=== PATIENT | female | born 1950 | race Caucasian/White ===

== ENCOUNTER → 2017-12-25 09:18 | Outpatient (CLI) | payer MEDICARE, SELFPAY | PROVIDERS: Family Provider Family Medicine; PCP Family Medicine; Visit Provider Family Medicine | DX: I45.10 Unspecified right bundle-branch block (principal); R06.02 Shortness of breath; R00.2 Palpitations | CPT/HCPCS: 93225; 93226 ==

== ENCOUNTER 2020-09-27 07:25 | Day surgery (SDC) | payer MEDICARE, SELFPAY ==
[2020-08-23 13:42] VITALS: BMI 26.8
[2020-09-08 13:49] VITALS: BMI 26.8
--- NOTE | 2020-09-27 07:33 | PCM.HP.BLA ---
History and Physical Date of Admission: 09/27/20 Intake Visit Reasons: CSCOPE, CONSTIPATION Chief Complaint: change in bowel habits Body Piercer Required: No Is patient in pain?: No Allergies celery Allergy (Mild, Verified 08/23/20 13:43) unknown diazepam [From Valium] Allergy (Mild, Verified 08/23/20 13:43) loopy grapefruit Allergy (Mild, Verified 08/23/20 13:43) unknown oxycodone Allergy (Mild, Verified 08/23/20 13:43) loopy pineapple Allergy (Mild, Verified 08/23/20 13:43) unknown ragweed pollen Allergy (Mild, Verified 08/23/20 13:43) unknown diphenhydramine HCl [From Benadryl] Allergy (Verified 08/23/20 13:43) Rash Medications simvastatin 20 mg PO QHS 02/16/14 [History Confirmed 08/23/20] calcium carbonate-vitamin D3 600 mg (1,500 mg)-400 unit capsule cap PO 07/30/17 [History Confirmed 08/23/20] cholecalciferol (vitamin D3) 25 mcg (1,000 unit) capsule 2,000 unit PO DAILY cap 07/30/17 [History Confirmed 08/23/20] lisinopril 40 mg tablet 40 mg PO QDAY 07/30/17 [History Confirmed 08/23/20] lutein 10 mg tablet 10 mg PO QDAY 07/30/17 [History Confirmed 08/23/20] multivitamin 1 tab PO QDAY 07/30/17 [History Confirmed 08/23/20] antiarthritic combination no.2 900 mg tablet mg PO tab 07/31/18 [History Confirmed 08/23/20] fluticasone propionate 50 mcg/actuation nasal spray,suspension 1 spray INTRANASAL BID 10/13/19 [History Confirmed 08/23/20] amlodipine 5 mg tablet 10 mg PO DAILY tab 08/23/20 [History Confirmed 08/23/20] hydrochlorothiazide 25 mg tablet 12.5 mg PO DAILY tab 08/23/20 [History Confirmed 08/23/20] Is last menstrual period known: No Post menopausal: Yes Patient : No PFSH Medical History (Updated 08/23/20 @ 13:[address] Eliu Tanner MD) Anxiety Hyperlipidemia Hypertension Lactose intolerance Sciatica White coat syndrome with hypertension Surgical History H/O colonoscopy S/P partial hysterectomy Family History (Updated 08/23/20 @ 13:28 by Hannah Rubio) Mother Lymphoma Heart disease Father Prostate cancer Asthma Hypertension Heart disease Kidney disease Social History (Updated 10/13/19 @ 09:21 by Kassandra Simmons NP, CLINCHING MACHINE OPERATOR-C) Smoking Status: Never smoker alcohol intake: never substance use type: does not use caffeine: Yes what type of physical activity do you participate in: walking, yoga and aerobics frequency: 5-6 times per week seatbelt use: always do you feel safe at home: Yes additional social history: - [employer]Ret[employer] 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 She is also had a change of bowel habits with inconsistency and narrowed stool. She has not noticed any bright red blood per rectum or melena. She is referred by her primary care physician Dr. Simon Tanner, III and a written copy my surgical consult recommendations will return to him. Her most recent colonoscopy was July 2018. A ascending colon polyp and a sigmoid polyp identified at that time. Pathology consistent with a tubular adenoma. She has no family history of colon cancer. She otherwise maintains excellent health. She exercises routinely. She has had no history of DVT. She has had amlodipine increased and with this there seems to be increased swelling of her left ankle and foot. HPI HPI HPI: SOHAIL POSEY, is a 70 F who presents to the office today for ROS General General: No weight change, appetite, fatigue, colon cancer, breast cancer or weakness HEENT HEENT: No difficulty swallowing, eye injury, eye surgery, swollen glands or hoarseness Endo Endocrine: No thyroid disease, diabetes mellitus, thyroid cancer, Hair loss, heat intolerance or cold intolerance Musc Musculoskeletal: Yes back problems; No arthritis, rheumatoid arthritis, gout or joint pain Cardio Cardiovascular: Yes high blood pressure; No murmur, pacemaker, heart disease, atrial fibrillation, heart attack, heart stent, palpitations, shortness of breat with exertion or chest pain Psych Psychiatric: Yes anxiety; No depression or hearing voices Resp Respiratory: No shortness of breath, No sleep apnea, No cough, No COPD, No asthma, No emphysema and No wheezing Gastro Gastrointestinal: Yes abdominal pain, No nausea or vomiting, No diarrhea, Yes constipation, No blood in stool, No acid reflux, No hemorrhoids, No ulcers, No gallbladder problem and No black,tarry stools Johnathan Hematologic: No blood thinners, No blood disorders, No bleeding, No anemia and No blood clots Neuro Neurologic: No weakness Exam Const General: cooperative, healthy appearing, comfortable and no acute distress Nutritional Appearance: average body habitus [facility] Head: normal to inspection Eyes General: appearance normal, both eyes and all related structures Neck Neck: normal visual inspection Resp Effort & Inspection: normal respiratory effort Auscultation: clear to auscultation bilaterally Cardio Rate: regular rate Rhythm: regular rhythm Heart Sounds: no murmurs GI Palpation: soft Auscultation: normal bowel sounds Other: Very slight tenderness to deep palpation left lower quadrant. No mass. No rebound. No guarding. I cannot detect a distinct hernia Musc Cervical Spine: normal cervical lordosis Neuro Cognition: normal cognition Extrem Other: Left ankle edema 1-2+ in deference to an otherwise normal right ankle Psych Appearance: grossly normal Assessment and Plan Assessment and Plan (1) Personal history of colonic polyps: Status: Acute Comment: I recommended the patient a colonoscopy with possible biopsy or polypectomy as indicated. She is aware of the technique, benefit, risk, alternatives. We will schedule procedure at her discretion. If that is not definitive in determining the source of her low abdominal pain then I would recommend a fully contrasted CT scan of the abdomen and pelvis. She has had an opportunity to ask and have questions answered and is agreeable with this plan. She will additionally contact Dr. Simon Tanner III regarding her progressive left ankle swelling possibly related to her amlodipine. I appreciate the opportunity of assisting with her surgical care Copy MANJU Soares M.D., F.A.C.S. (2) Change in bowel habit: Status: Acute Coding Level of Care Code 45178 Diagnoses Personal history of colonic polyps Z86.010 Change in bowel habit R19.4 I have re-examined the patient. There are no clinical changes since date of exam.
[2020-09-27 07:47] VITALS: BP 183/72; PULSE 55; RESP 14; TEMP 35.9; O2SAT 99; BMI 25.9
[2020-09-27] MEDS: Lactated Ringers 1,000 ML 100 ML IV (08:03)
--- NOTE | 2020-09-27 08:30 | COLBX_PTH ---
PATIENT: SOHAIL POSEY LOC: EN U#:[id number] AGE/SX: 70/F ROOM: RE09/27/[address]: Dr. Eliu Tanner MD : 1950 BED: DIS: 09/27/2020 SPEC #: [id number] RECD: 09/27/20 10:24 STATUS: JOHN REJessica #: [id number] JANIE: 09/27/20 08:[address]: Eliu Tanner DEPT: SURGICAL PATHOLOGY RECD BY: Mera Montgomery ENTERED: 09/27/20 13:17 SP TYPE: COLON BX OTHR DR: Paulie De Leon MD Tissues: COLON BIOPSY Procedures: Surgery Specimen Level IV HEADER OPERATION: Colonoscopy (MAC) PRE-OP DIAGNOSIS: History of colonic polyps TISSUE SUBMITTED: Biopsy of hepatic flexure polyp MICROSCOPIC DIAGNOSIS Hepatic flexure polyp, biopsy: Tubular adenoma. ELSA:richie 09/28/2020 MICROSCOPIC DESCRIPTION Slides are reviewed. GROSS DESCRIPTION Received in fixative is one container labeled with the patient's name and designated biopsy hepatic flexure polyp. The specimen consists of two irregular fragments of light mao soft tissue that in aggregate measure 0.6 x 0.2 x 0.1 cm. The specimen is totally submitted in one cassette. / SJ:rg 09/27/20 TC:1 CPT: 14798
[2020-09-27 09:15] VITALS: BP 171/97; BP 183/72; PULSE 66; RESP 16; TEMP 36.2; O2SAT 100
--- NOTE | 2020-09-27 09:16 | OP.CCLET_ITS ---
09/27/2020 Simon Tanner [address] [place] [address] Re : Colonoscopy procedure for Liudmila Méndezfrancheskajuan antonio Dear Dr. Tanner This procedure was performed on Sunday, September 27, 2020. My impressions and recommendations are as follows: Impressions : - Hemorrhoids found on perianal exam. - One 5 mm polyp at the hepatic flexure, removed with a cold biopsy forceps. Resected and retrieved. - Diverticulosis in the sigmoid colon and in the descending colon. - Redundant colon. No inflammatory mucosal identified. The patient states currently here left lower quadrant pain is improved. If symptoms were to recur I would consider a fully contrasted abdominal pelvic CT scan. Recommendations : - Discharge patient to home. - Resume previous diet. - Continue present medications. - Repeat colonoscopy in 5 years for surveillance based on pathology results. - Telephone my office for pathology results in 1 week. My findings are described in the full procedure note, which is enclosed. If I can be of further assistance, please feel free to contact me at Doctor phone number(s): Work: . Sincerely, Eliu Tanner MD 09/27/2020 9:15:50 AM This report has been signed electronically.
--- NOTE | 2020-09-27 09:16 | OP.COLON_ITS ---
Patient Name: Liudmila Luz Procedure Date: 09/27/2020 8:44 AM Date of : 1950 Age: 70 Procedure: Colonoscopy Indications: Abdominal pain in the left lower quadrant Providers: Eliu Tanner MD Medicines: See the Anesthesia note for documentation of the administered medications Patient Profile: Last Colonoscopy: July 2018. Complications: No immediate complications. Procedure: Pre-Anesthesia Assessment: - Prior to the procedure, a History and Physical was performed, and patient medications and allergies were reviewed. The patient's tolerance of previous anesthesia was also reviewed. The risks and benefits of the procedure and the sedation options and risks were discussed with the patient. All questions were answered, and informed consent was obtained. Prior Anticoagulants: The patient has taken no previous anticoagulant or antiplatelet agents. ASA Grade Assessment: II - A patient with mild systemic disease. After reviewing the risks and benefits, the patient was deemed in satisfactory condition to undergo the procedure. After I obtained informed consent, the scope was passed under direct vision. Throughout the procedure, the patient's blood pressure, pulse, and oxygen saturations were monitored continuously. The pediatric colonoscope was introduced through the anus and advanced to the cecum, identified by appendiceal orifice and ileocecal valve. The colonoscopy was performed without difficulty. The patient tolerated the procedure well. The quality of the bowel preparation was good. The ileocecal valve and the appendiceal orifice were photographed. Scope In: 8:53:10 AM Scope Withdrawal Time 0 hours 10 minutes 17 seconds Scope Out: 9:09:12 AM Total Procedure Duration Time 0 hours 16 minutes 2 seconds Findings: Hemorrhoids were found on perianal exam. A 5 mm polyp was found in the hepatic flexure. The polyp was sessile. The polyp was removed with a cold biopsy forceps. Resection and retrieval were complete. Multiple diverticula were found in the sigmoid colon and descending colon. The colon (entire examined portion) was mildly redundant. Impression: - Hemorrhoids found on perianal exam. - One 5 mm polyp at the hepatic flexure, removed with a cold biopsy forceps. Resected and retrieved. - Diverticulosis in the sigmoid colon and in the descending colon. - Redundant colon. No inflammatory mucosal identified. The patient states currently here left lower quadrant pain is improved. If symptoms were to recur I would consider a fully contrasted abdominal pelvic CT scan. Recommendation: - Discharge patient to home. - Resume previous diet. - Continue present medications. - Repeat colonoscopy in 5 years for surveillance based on pathology results. - Telephone my office for pathology results in 1 week. Procedure Code(s): --- Professional --- 83983, Colonoscopy, flexible; with biopsy, single or multiple Diagnosis Code(s): --- Professional --- K64.9, Unspecified hemorrhoids D12.3, Benign neoplasm of transverse colon (hepatic flexure or splenic flexure) R10.32, Left lower quadrant pain K57.30, Diverticulosis of large intestine without perforation or abscess without bleeding Q43.8, Other specified congenital malformations of intestine CPT copyright 2017 [employer]. All rights reserved. The codes documented in this report are preliminary and upon aircraft cabin cleaner review may be revised to meet current compliance requirements. Eliu Tanner MD 09/27/2020 9:15:50 AM This report has been signed electronically. Number of Addenda: 0 Note Initiated On: 09/27/2020 8:44 AM
[2020-09-27 09:20] VITALS: BP 171/74; BP 183/72; PULSE 61; RESP 16; O2SAT 99
[2020-09-27 09:25] VITALS: BP 154/74; BP 183/72; PULSE 54; RESP 16; O2SAT 98
[2020-09-27 09:29] VITALS: BP 155/82; BP 183/72; PULSE 54; RESP 16; TEMP 36.2; O2SAT 98
[2020-09-27 10:10] VITALS: BP 183/72
== END 2020-09-27 10:10 ==
LOC: EN 07:27 → AC 07:28
PROVIDERS: PCP Family Medicine; Referring Provider Family Medicine; Visit Provider Surgery
PROC: 0DJD8ZZ Inspection of Lower Intestinal Tract, Via Natural or Artificial Opening Endoscopic (ICD-10-PCS; CPT 45378; principal; 2020-09-27 08:25)
DX: D12.3 Benign neoplasm of transverse colon (principal); K64.9 Unspecified hemorrhoids; Q43.8 Other specified congenital malformations of intestine; I10 Essential (primary) hypertension; E78.5 Hyperlipidemia, unspecified; E78.00 Pure hypercholesterolemia, unspecified; E73.9 Lactose intolerance, unspecified; M54.30 Sciatica, unspecified side; Z79.899 Other long term (current) drug therapy; Z68.25 Body mass index [BMI] 25.0-25.9, adult; Z86.010 Personal history of colon polyps
CPT/HCPCS: 45380; 88305; J7120; J2405

== ENCOUNTER → 2023-11-05 | Outpatient (CLI) | payer MEDICARE, SELFPAY ==
--- NOTE | 2023-11-05 08:30 | CT_ITS ---
STUDY: CT CHEST WITHOUT CONTRAST REASON FOR EXAM: Female, 73 years old. Thoracic aortic ectasia RADIATION DOSAGE (If Supplied By Facility): CTDIvol = ( 12.19 ) mGy, DLP = ( 243.79 ) mGycm TECHNIQUE: Transaxial imaging was performed without the administration of intravenous contrast material. Cardiac Overread examination. Individualized dose optimization techniques were used for this CT. COMPARISON: No relevant priors. FINDINGS: CHEST Minimal bilateral pleural effusions with bibasilar linear atelectasis. There are calcifications of the coronary arteries. Minimal degree of anterior pericardial thickening. Normal mediastinum. Normal hilar regions. Normal unenhanced pulmonary arteries. The root of the ascending thoracic aorta is dilated. It measures 48.8 mm. Normal osseous structures. There is no demonstrated abnormality of the visualized upper abdomen. CT/Limited Chest CT Cardiac Only IMPRESSION: The root of the ascending thoracic aorta is dilated and measures 48.8 mm. Coronary artery calcification. Minimal anterior pericardial thickening. Minimal bibasilar atelectasis and tiny pleural effusions. . Electronically Signed: Geronimo Carey MD at 7:42 EDT ,
--- NOTE | 2023-11-05 11:48 | CA.SCORE ---
Calcium Scoring Date of Study:: 11/05/23 Indications Indications: Thoracic ectasia Coronary Calcium Scoring: High-resolution Computed Tomographic imaging of the chest was performed on [11/05/2023], with particular attention paid to the coronary arteries. Images from the examination were analyzed for the presence and extent of coronary artery calcification , using coronary calcium quantification software. The patient tolerated the procedure well and there were no complications. The results of the coronary calcification analysis are provided below. Findings Coronary Artery Left Main (LM): 0 Left Anterior Descending (LAD): 501 Left Circumflex (LCX): 206 Right Coronary Artery (RCA): 412 Total Agatston Score: 1,119 Percentile Ranking: Greater than 90th percentile. Calcium Scoring Interpretation: Different methods to categorize the overall amount of coronary plaque. Overall amount CAC SIS Visual of coronary plaque P1 Mild -100 <2 1-2 vessels with mild amount of plaque P2 Moderate 101-300 3-4 1-2 vessels with moderate amount, 3 vessels with mild amount of plaque P3 Severe 301-999 5-7 3 vessels with moderate amount, 1 vessel with severe amount of plaque P4 Extensive >1000 >8 2-3 vessels with severe amount of plaque Calcium Score: Extensive: 2-3 vessels w/severe amount of plaque Conclusion: Extensive to three-vessel plaque disease noted
== END | disposition home or self-care (01) ==
LOC: CT 07:46
PROVIDERS: PCP Student in an Organized Health Care Education/Training Program; Referring Provider Internal Medicine Cardiovascular Disease; Visit Provider Internal Medicine Cardiovascular Disease
DX: I77.810 Thoracic aortic ectasia (principal); R07.9 Chest pain, unspecified
CPT/HCPCS: 75571; 76380

== ENCOUNTER → 2023-12-25 | Outpatient (CLI) | payer MEDICARE, SELFPAY | END | disposition home or self-care (01) | PROVIDERS: PCP Student in an Organized Health Care Education/Training Program; Referring Provider Physician Assistant Medical; Visit Provider Physician Assistant Medical | DX: R94.31 Abnormal electrocardiogram [ECG] [EKG] (principal); R00.1 Bradycardia, unspecified; R00.2 Palpitations | CPT/HCPCS: 93225; 93226 ==

== ENCOUNTER → 2024-01-01 | Outpatient (CLI) | payer MEDICARE, SELFPAY ==
--- NOTE | 2024-01-01 21:33 | STRESSREP ---
Stress Test Report Exercise stress test. 73-year-old lady with a history of chest pain Stress protocol: Resting EKG demonstrates normal sinus rhythm with premature atrial complexes and a rate of 75 bpm resting blood pressure is 144/90 mmHg. The patient exercised according to the regular Elder protocol for a total duration of 7 minutes and 30 seconds attaining a maximum heart rate of 120 bpm which was 82% of maximum predicted heart rate; the maximum workload was 10.1 metabolic equivalents. At rest there were no ST or T wave changes noted to suggest ischemia and at peak exercise upsloping ST changes only were noted which did not meet the criteria for ischemia. No clinical angina was noted the test was terminated due to the target heart rate being achieved/fatigue. The peak blood pressure was 170/80 mmHg. Rate-pressure product was 19,000. Conclusion: Exercise stress test with no EKG criteria for ischemia at a high workload. No clinical angina noted
== END | disposition home or self-care (01) ==
LOC: CVS 11:34
PROVIDERS: PCP Student in an Organized Health Care Education/Training Program; Referring Provider Nurse Practitioner Family; Visit Provider Nurse Practitioner Family
DX: R94.31 Abnormal electrocardiogram [ECG] [EKG] (principal); R93.1 Abnormal findings on diagnostic imaging of heart and coronary circulation; R53.82 Chronic fatigue, unspecified
CPT/HCPCS: 93017